=== PATIENT | male | born 1985 | race American Indian/Alaskan Native ===

== ENCOUNTER 2018-12-24 07:03 | Emergency (ER) | payer OTHER ==
[2018-12-24 08:05] LABS: Basophils # (Auto) 0.1 K/mm3 (0.0-0.1); Basophils % (Auto) 0.8 % (0.0-1.8); Eosinophils # (Auto) 0.2 K/mm3 (0.0-0.4); Eosinophils % (Auto) 3.8 % (0.0-4.3); Hematocrit 36.3 % (35.5-45.6); Hemoglobin 12.1 gm/dl (11.8-15.2); Lymphocytes # (Auto) 2.6 K/mm3 (1.2-5.4); Lymphocytes % (Auto) 40.1 % (13.4-35.0); Mean Corpuscular HGB Conc 33 % (32-34); Mean Corpuscular Volume 81 fl (84-94); Monocytes # (Auto) 0.7 K/mm3 (0.0-0.8); Platelet Count 205 K/mm3 (140-440); Red Blood Count 4.48 M/mm3 (3.65-5.03); Red Cell Distribution Width 15.3 % (13.2-15.2)
[2018-12-24 08:24] LABS: Alanine Aminotransferase 36 units/L (7-56); Albumin 3.2 g/dL (3.9-5); BUN/Creatinine Ratio 10; Blood Urea Nitrogen 8 mg/dL (9-20); Calcium 8.6 mg/dL (8.4-10.2); Hemolysis Index 4
[2018-12-24] MEDS ORDERED: LASIX IV ONE (10:13)
[2018-12-24] MEDS ORDERED: TORADOL IV ONE (10:13)
--- NOTE | 2018-12-24 10:53 | XRay Report ---
BILATERAL FEET, 3 VIEWS History: Pain. Findings: There is mild nonspecific soft tissue swelling or edema in both feet. No soft tissue gas or foreign body is identified. The bony structures and joint spaces are unremarkable. Impression: Nonspecific bilateral soft tissue swelling or edema.
--- NOTE | 2018-12-24 11:01 | Emergency Department Report ---
HPI - General Chief Complaint: Extremity Problem,Nontraumatic Time Seen by Provider: 12/24/18 10:00 - HPI HPI: 33-year-old -[place] male presents to the emergency department with a complaint of a 2 week history of swelling to the bilateral feet and now a 2 day history of pain in the top of his feet. The patient is morbidly obese but denies any swelling to any other portion of his body other than the feet. He also denies any past medical history but does admit that he does not have a primary care physician and has not followed with one since he was a child. However he says that he has been seen by physicians in the past and screened for many medical conditions such as hypertension, diabetes and other comorbidities. No recent travel or sick contacts at home. He denies any skin color change, lesions, warmth, fever. He has not taken anything for his symptoms prior to arrival today. ED Past Medical Hx - Past Medical History Previous Medical History?: No - Surgical History Past Surgical History?: Yes Hx Appendectomy: Yes - Social History Smoking Status: Never Smoker Substance Use Type: None - Medications Home Medications: Home Medications Medication Instructions Recorded Confirmed Last Taken Type No Known Home Medications [No 12/24/18 12/24/18 Unknown History Reported Home Medications] ED Review of Systems ROS: Stated complaint: SWOLLEN FEET Other details as noted in HPI Comment: All other systems reviewed and negative Constitutional: denies: chills, fever Eyes: denies: eye pain, vision change ENT: denies: ear pain, throat pain Respiratory: denies: cough, shortness of breath Cardiovascular: edema. denies: chest pain Gastrointestinal: denies: abdominal pain, vomiting Genitourinary: denies: dysuria, discharge Musculoskeletal: arthralgia. denies: back pain Skin: denies: rash, lesions Neurological: denies: headache, weakness Physical Exam - Physical Exam Vital Signs: Vital Signs 12/24/18 12/24/18 12/24/18 07:12 08:14 08:15 Temperature 97.6 F Pulse Rate 72 71 65 Respiratory 16 12 15 Rate Blood Pressure 121/53 Blood Pressure 164/105 [Left] O2 Sat by Pulse 97 Oximetry 12/24/18 12/24/18 12/24/18 08:30 08:44 08:45 Temperature 97.9 F Pulse Rate 78 58 L Respiratory 15 13 Rate Blood Pressure 126/58 124/71 Blood Pressure [Left] O2 Sat by Pulse Oximetry 12/24/18 12/24/18 12/24/18 09:00 09:15 09:30 Temperature Pulse Rate 66 66 74 Respiratory 16 12 15 Rate Blood Pressure 110/58 118/58 127/67 Blood Pressure [Left] O2 Sat by Pulse Oximetry 12/24/18 12/24/18 12/24/18 09:45 10:00 10:15 Temperature Pulse Rate 72 65 71 Respiratory 13 15 12 Rate Blood Pressure 133/75 126/68 124/82 Blood Pressure [Left] O2 Sat by Pulse Oximetry 12/24/18 12/24/18 10:30 10:34 Temperature Pulse Rate 71 Respiratory 17 18 Rate Blood Pressure 126/75 Blood Pressure [Left] O2 Sat by Pulse Oximetry Physical Exam: GENERAL: The patient is well-developed well-nourished. HENT: Normocephalic. Atraumatic. Patient has moist mucous membranes. EYES: Extraocular motions are intact. Pupils equal reactive to light bilaterally. NECK: Supple. Trachea is midline. CHEST/LUNGS: Clear to auscultation. There is no respiratory distress noted. HEART/CARDIOVASCULAR: Regular. There is no tachycardia. There is no murmur. ABDOMEN: Abdomen is soft, nontender. Patient has normal bowel sounds. Severely morbidly obese. SKIN: There is nonpitting swelling of the bilateral feet but no erythema, warmth, fluctuance. NEURO: The patient is awake, alert, and oriented. The patient is cooperative. The patient has no focal neurologic deficits. The patient has normal speech. MUSCULOSKELETAL: There is no tenderness or deformity. There is no evidence of acute injury. ED Course Vital Signs 12/24/18 12/24/18 12/24/18 07:12 08:14 08:15 Temperature 97.6 F Pulse Rate 72 71 65 Respiratory 16 12 15 Rate Blood Pressure 121/53 Blood Pressure 164/105 [Left] O2 Sat by Pulse 97 Oximetry 12/24/18 12/24/18 12/24/18 08:30 08:44 08:45 Temperature 97.9 F Pulse Rate 78 58 L Respiratory 15 13 Rate Blood Pressure 126/58 124/71 Blood Pressure [Left] O2 Sat by Pulse Oximetry 12/24/18 12/24/18 12/24/18 09:00 09:15 09:30 Temperature Pulse Rate 66 66 74 Respiratory 16 12 15 Rate Blood Pressure 110/58 118/58 127/67 Blood Pressure [Left] O2 Sat by Pulse Oximetry 12/24/18 12/24/18 12/24/18 09:45 10:00 10:15 Temperature Pulse Rate 72 65 71 Respiratory 13 15 12 Rate Blood Pressure 133/75 126/68 124/82 Blood Pressure [Left] O2 Sat by Pulse Oximetry 12/24/18 12/24/18 10:30 10:34 Temperature Pulse Rate 71 Respiratory 17 18 Rate Blood Pressure 126/75 Blood Pressure [Left] O2 Sat by Pulse Oximetry ED Medical Decision Making - Lab Data Result diagrams: 12/24/18 07:38 12/24/18 07:38 - Radiology Data Radiology results: report reviewed, image reviewed interpreted by me: X-ray of the bilateral feet does not show any fracture, dislocation or any acute process. PROCEDURE: VL VENOUS DUPLEX LE BILAT TECHNIQUE: Portillo scale, color and pulsed Doppler ultrasound with color flow and spectral analysis evaluation of both lower extremities were performed to assess for deep vein thro mbosis. HISTORY: bilateral LE pain and swelling COMPARISONS: None currently available. FINDINGS: RIGHT extremity: There is normal grayscale appearance and compressibility. Normal phasic pulsed Doppler and normal color Doppler flow are visualized. The interrogated vessels show normal augmen tation. LEFT extremity: There is normal grayscale appearance and compressibility. Normal phasic pulsed Doppler and normal color Doppler flow are visualized. The interrogated vessels show normal au gmentation. IMPRESSION: * No evidence for DVT. This document is electronically signed by Marek Mcdnoough MD., Dec 24 2018 12:44:46 PM ET Transcribed By: TYM Dictated By: MAREK MCDONOUGH MD Electronically Authenticated By: MAREK MCDONOUGH MD Signed Date/Time: 12/24/18 1246 - Medical Decision Making This patient presents to the emergency department with a two-week history of foot swelling and a 2 day history of foot pain. He denies any swelling to the rest of the lower extremities or anywhere else, but it is difficult to assess secondary to his very large habitus. Patient's labs have been unremarkable. X- rays were completed of the bilateral feet that did not show any fractures, dislocations or any acute processes. Since the patient did recently have a long car ride down from [place], I obtained bilateral lower show any venous Dopplers that were also negative for any acute DVT. His vital signs and stable throughout his ED course. The patient is returning back to [place] in a few days. He understands the importance of following up with a primary care physician. He was given a dose of Lasix here to start some diuresis. He will return to the closest emergency department with any worsening of his symptoms or any acute distress. - Differential Diagnosis venous stasis, DVT, CHF, cellulitis Critical Care Time: No Critical care attestation.: If time is entered above; I have spent that time in minutes in the direct care of this critically ill patient, excluding procedure time. ED Disposition Clinical Impression: Swollen feet, Bilateral foot pain Disposition: TO HOME OR SELFCARE Is pt being admited?: No Condition: Stable Instructions: Leg Edema (ED), Arthralgia (ED) Additional Instructions: Please follow up with a primary care physician and a lifter or orthopedist when you return back to [place] in a few days. Return to the emergency Department with any worsening of your symptoms, development of chest pain or shortness of breath, any acute distress. Referrals: Primary Care Provider, Your [Other] - 3-5 Days Time of Disposition: 12:56
--- NOTE | 2018-12-24 12:46 | Vascular Lab Report ---
PROCEDURE: VL VENOUS DUPLEX LE BILAT TECHNIQUE: Portillo scale, color and pulsed Doppler ultrasound with color flow and spectral analysis eval uation of both lower extremities were performed to assess for deep vein thrombosis. HISTORY: bilateral LE pain and swelling COMPARISONS: None currently available. FINDINGS: RIGHT extremity: There is normal grayscale appearance and compressibility. Normal phasic pulsed Doppler and normal col or Doppler flow are visualized. The interrogated vessels show normal augmentation. LEFT extremity: There is normal grayscale appearance and compressibility. Normal phasic pulsed Doppler and normal col or Doppler flow are visualized. The interrogated vessels show normal augmentation. IMPRESSION: * No evidence for DVT. This document is electronically signed by Marek Langston MD., Dec 24 2018 12:44:46 PM ET
[2018-12-24 13:12] VITALS: BP 140/77
== END 2018-12-24 13:15 | disposition home or self-care (01) ==
LOC: ED 07:03
DX: M79.89 Other specified soft tissue disorders (principal); M79.671 Pain in right foot; M79.672 Pain in left foot; Z90.89 Acquired absence of other organs; Z98.890 Other specified postprocedural states
CPT/HCPCS: 36415; 73630; 80053; 83880; 85025; 93970; 96374; 96375; 99284; J1885; J1940